=== PATIENT | male | born 1940 | race African-American/Black ===

== ENCOUNTER 2018-02-20 12:56 | Inpatient (IN) | payer MEDICARE, OTHER ==
[~2018-02-20] VITALS: Ht 177.8 cm; Wt 119.3 kg
[2018-02-20] MEDS ORDERED: OLANZAPINE 10 MG VIAL IM ONE ×2 (12:59→13:15)
[2018-02-20] MEDS ORDERED: LORAZEPAM 2 MG/1 ML VIAL ONE (13:01)
[2018-02-20] MEDS ORDERED: LORAZEPAM 2 MG/1 ML VIAL IM ONE (13:02)
--- NOTE | 2018-02-20 13:10 | NUR ---
PATIENT HERE FROM A NURSING FACILITY. HE IS AWAKE. HE IS COMBATIVE AND YELLING OUT INAPPRORIATE THINGS. HE IS IN RESTRAINTS FROM THE AMBULANCE. HE IS GOING TO ROOM 5.
[2018-02-20] MEDS ORDERED: POLY17PO4 PO (13:30)
[2018-02-20] MEDS ORDERED: NIFE30TA89 PO (13:30)
[2018-02-20] MEDS ORDERED: BISA-79 PO (13:30)
[2018-02-20] MEDS ORDERED: CHOL20004 PO (13:30)
[2018-02-20] MEDS ORDERED: ARIP400S IM (13:30)
[2018-02-20] MEDS ORDERED: DIVA500T54 PO (13:30)
[2018-02-20] MEDS ORDERED: FERR325T28 PO (13:30)
[2018-02-20] MEDS ORDERED: ACET-2154 PO (13:30)
[2018-02-20] MEDS ORDERED: ACCU-CHEK (13:30)
[2018-02-20] MEDS ORDERED: SENN-18 PO (13:30)
[2018-02-20] MEDS ORDERED: QUET50TA PO (13:30)
[2018-02-20] MEDS ORDERED: LORA-259 PO (13:30)
[2018-02-20 13:40] LABS: BASOPHILS # (AUTO) 0.1 K/uL (0.0-8.0); BASOPHILS % (AUTO) 0.9 % (0.0-2.0); EOSINOPHILS # (AUTO) 0.1 K/uL (0.0-0.7); EOSINOPHILS % (AUTO) 0.8 % (0.0-7.0); HEMATOCRIT 36.3 % (36.7-47.1); LYMPHOCYTES # (AUTO) 1.4 K/uL (20.0-40.0); LYMPHOCYTES % (AUTO) 16.5 % (20.5-51.5); MEAN CORPUSCULAR HEMOGLOBIN 28.6 uug (23.8-33.4); MEAN CORPUSCULAR HGB CONC 33 g/dL (32.5-36.3); MEAN CORPUSCULAR VOLUME 86.3 fL (73.0-96.2); MONOCYTES # (AUTO) 0.6 K/uL (2.0-10.0); MONOCYTES % (AUTO) 6.4 % (0.0-11.0); NEUTROPHILS # (AUTO) 6.6 K/uL (1.8-8.9); NEUTROPHILS % (AUTO) 75.4 % (38.5-71.5); PLATELET COUNT (AUTO) 278 K/uL (152-348); WHITE BLOOD COUNT (AUTO) 8.7 K/uL (3.6-10.2)
[2018-02-20 13:46] LABS: CARBON DIOXIDE 19 mmol/L (21-32); CHLORIDE 102 mmol/L (98-107); CREATININE 4.1 mg/dL (0.6-1.3); GLUCOSE 124 mg/dL (74-106); POTASSIUM 4.4 mmol/L (3.5-5.1); UREA NITROGEN, BLOOD 54 mg/dL (7-18)
[2018-02-20 13:51] LABS: ALANINE AMINOTRANSFERASE 20 U/L (16-63); ALKALINE PHOSPHATASE 112 U/L (50-136); ASPARTATE AMINOTRANSFERASE 9 U/L (15-37); BILIRUBIN,DIRECT 0.1 mg/dL (0.0-0.2); BILIRUBIN,TOTAL 0.3 mg/dL (0.2-1.0); TOTAL PROTEIN, SERUM 8.1 g/dL (6.4-8.2)
[2018-02-20 13:53] LABS: ACETAMINOPHEN < 2.0 ug/mL (10-30); ETHANOL < 3 MG/DL (0-0)
--- NOTE | 2018-02-20 14:10 | NUR ---
PATIENT IS CALM NOW, NO FURTHER YELLING OR SUDDEN MOVEMENTS. SP02 >99 % ON RA. HE IS SITTING UP QUIETLY WATCVHING TV. AWAITING TEST RESULTS.
--- NOTE | 2018-02-20 15:05 | NUR ---
PATIENT IS SLEEPY BUT AROUSES EASY. SP02 >99% ON RA.
[2018-02-20] MEDS ORDERED: HALOPERIDOL LACTATE 5 MG/1 ML VIAL IM ONE (15:33)
[2018-02-20] MEDS ORDERED: HALOPERIDOL LACTATE 5 MG/1 ML VIAL ONE (15:39)
[2018-02-20] MEDS ORDERED: IV NS 1000 ML 1,000 ML IV ONE (15:45)
--- NOTE | 2018-02-20 16:30 | NUR ---
PT IS RESTING COMFORTABLY WITH EYES CLOSED. O2 SAT IS 99% ON ROOM AIR.
--- NOTE | 2018-02-20 17:45 | NUR ---
IV removed. Catheter intact and site benign. Pressure and 4x4 gauze applied to site. No bleeding noted.
--- NOTE | 2018-02-20 17:56 | NUR ---
GAVE REPORT TO TYLER AND PT WAS TRANSFERRED TO [facility].
[2018-02-20] MEDS ORDERED: TEMAZEPAM 7.5 MG CAPSULE PO PRN (18:00)
[2018-02-20] MEDS ORDERED: MAG HYDROX/AL HYDROX/SIMETH 30 ML LIQUID UDC PO PRN (18:00)
[2018-02-20] MEDS ORDERED: MAGNESIUM HYDROXIDE 30 ML LIQUID UDC PO PRN (18:00)
--- NOTE | 2018-02-20 18:00 | NUR ---
Gps/Pill Packer- Received patient from ER via [facility].Patient is lethargic, difficulty following directions. Incontinent of urine noted, diaper applied. Speech slurred, when tried to awakened patient, unable to weight patient at this time, r/t lethargy, unable to follow directions. Bed alarm on. Called [facility], left message. Routine admission care done.Unable to feed patient lethargic.MRSA swab done, urine specimen obtained sent to lab.
[2018-02-20 18:34] LABS: *BILIRUBIN,URIN NEGATIVE (NEGATIVE); *BLOOD, URINE 2+ (NEGATIVE); *CLARITY,URINE CLEAR (CLEAR); *COLOR,URINE YELLOW (YELLOW); *KETONES,URINE NEGATIVE (NEGATIVE); *UROBILINOGEN,URINE 0.2 E.U./dl (NORMAL); LEUKOCYTE ESTERASE ,URINE NEGATIVE (NEGATIVE); NITRITE, URINE NEGATIVE (NEGATIVE); PH,URINE 5.5 (5.0-8.0); UGLUCOSE NEGATIVE (NEGATIVE)
[2018-02-20 18:45] LABS: *AMPHETAMINE, URINE NEGATIVE (NEGATIVE); *BARBITURATE, URINE NEGATIVE (NEGATIVE); *CANNABINOID, URINE NEGATIVE (NEGATIVE); *COCCAINE, URINE NEGATIVE (NEGATIVE); *OPIATE, URINE NEGATIVE (NEGATIVE); *PHENCYCLIDINE SCREEN,URINE NEGATIVE (NEGATIVE)
[2018-02-20 19:59] LABS: *PROTEIN,URINE 3+ (NEGATIVE)
[2018-02-20 20:04] LABS: MUCUS,URINE FEW /LPF (0-FEW)
[2018-02-20 21:55] VITALS: BP 132/86
[2018-02-20] MEDS ORDERED: BISACODYL 5 MG TABLET.DR PO PRN (23:45)
[2018-02-20] MEDS ORDERED: SENNOSIDES 1 TABLET PO PRN (23:45)
[2018-02-21 07:13] LABS: BASOPHILS % (AUTO) 0.5 % (0.0-2.0); EOSINOPHILS # (AUTO) 0.2 K/uL (0.0-0.7); HEMATOCRIT 36.1 % (36.7-47.1); HEMOGLOBIN 11.8 g/dL (12.5-16.3); LYMPHOCYTES # (AUTO) 2.2 K/uL (20.0-40.0); LYMPHOCYTES % (AUTO) 26.7 % (20.5-51.5); MEAN CORPUSCULAR HEMOGLOBIN 28.7 uug (23.8-33.4); MEAN CORPUSCULAR HGB CONC 33 g/dL (32.5-36.3); MEAN CORPUSCULAR VOLUME 88.1 fL (73.0-96.2); MONOCYTES # (AUTO) 0.6 K/uL (2.0-10.0); MONOCYTES % (AUTO) 7.1 % (0.0-11.0); NEUTROPHILS # (AUTO) 5.2 K/uL (1.8-8.9); NEUTROPHILS % (AUTO) 63.7 % (38.5-71.5); PLATELET COUNT (AUTO) 287 K/uL (152-348); RED BLOOD CELL COUNT(AUTO) 4.09 MIL/uL (4.06-5.63); WHITE BLOOD COUNT (AUTO) 8.1 K/uL (3.6-10.2)
[2018-02-21 07:30] VITALS: BP 146/89
[2018-02-21] MEDS ORDERED: TEMAZEPAM 15 MG CAPSULE PO PRN (08:00)
[2018-02-21 08:24] LABS: CARBON DIOXIDE 22 mmol/L (21-32); CHLORIDE 99 mmol/L (98-107); CREATININE 4.1 mg/dL (0.6-1.3); GLUCOSE 82 mg/dL (74-106); POTASSIUM 4.8 mmol/L (3.5-5.1); UREA NITROGEN, BLOOD 53 mg/dL (7-18)
[2018-02-21 08:25] LABS: ALANINE AMINOTRANSFERASE 21 U/L (16-63); ALKALINE PHOSPHATASE 106 U/L (50-136); ASPARTATE AMINOTRANSFERASE 22 U/L (15-37); BILIRUBIN,TOTAL 0.3 mg/dL (0.2-1.0); MAGNESIUM 2.4 mg/dL (1.8-2.4); PHOSPHOROUS 4.1 mg/dL (2.5-4.9); TOTAL PROTEIN, SERUM 8.1 g/dL (6.4-8.2)
[2018-02-21 08:30] LABS: VALPROIC ACID < 3 ug/mL (50-100)
[2018-02-21] MEDS: MIRALAX 17 GM POWD.PACK PO SCH (08:44)
[2018-02-21] MEDS: CHOLECALCIFEROL 1,000 UNIT TABLET PO SCH (08:44)
[2018-02-21] MEDS: FERROUS SULFATE 325 MG TABEC PO SCH (08:44)
[2018-02-21] MEDS: LORAZEPAM 0.5 MG TABLET PO PRN ×2 (08:44→15:19)
[2018-02-21] MEDS: NIFEdipine XL 30 MG TABSR PO SCH ×2 (08:44→16:19)
[2018-02-21 09:14] LABS: THYROID STIMULATING HORMONE 0.753 mIU/mL (0.358-3.740)
[2018-02-21] MEDS ORDERED: Medication Not On Formulary EA (Quetiapine Fumarate (Seroquel) 50 MG) PO SCH (11:15)
[2018-02-21] MEDS: QUETIAPINE FUMARATE 25 MG TABLET PO SCH ×2 (12:00→17:00)
[2018-02-21] MEDS: ACETAMINOPHEN 325 MG TABLET PO PRN ×2 (15:10→22:05)
[2018-02-21] MEDS: hydrALAZINE HCL 25 MG TABLET PO PRN (15:19)
[2018-02-21 15:46] VITALS: BP 164/84
[2018-02-21 18:11] VITALS: BP 147/86
[2018-02-21 20:00] VITALS: BP 160/75
[2018-02-21] MEDS: DIVALPROEX ER 500 MG TAB.SR.24H PO SCH (21:00)
[2018-02-21] MEDS: ATORVASTATIN 10 MG TABLET PO SCH (21:15)
--- NOTE | 2018-02-22 06:01 | NUR ---
PATIENT SLEPT INTERMITTENTLY THROUGH THE NIGHT FOR APPROX. 5HRS. WILL CONTINUE TO MONITOR FOR HIS SAFETY
[2018-02-22 07:35] LABS: IRON, SERUM 24 ug/dL (50-175)
[2018-02-22 07:44] LABS: BASOPHILS % (AUTO) 0.5 % (0.0-2.0); EOSINOPHILS # (AUTO) 0.1 K/uL (0.0-0.7); EOSINOPHILS % (AUTO) 1.5 % (0.0-7.0); HEMATOCRIT 35.1 % (36.7-47.1); HEMOGLOBIN 11.4 g/dL (12.5-16.3); LYMPHOCYTES # (AUTO) 1.6 K/uL (20.0-40.0); LYMPHOCYTES % (AUTO) 19.6 % (20.5-51.5); MEAN CORPUSCULAR HEMOGLOBIN 28.4 uug (23.8-33.4); MEAN CORPUSCULAR HGB CONC 33 g/dL (32.5-36.3); MEAN CORPUSCULAR VOLUME 87.5 fL (73.0-96.2); MONOCYTES # (AUTO) 0.7 K/uL (2.0-10.0); MONOCYTES % (AUTO) 8.7 % (0.0-11.0); NEUTROPHILS # (AUTO) 5.8 K/uL (1.8-8.9); NEUTROPHILS % (AUTO) 69.7 % (38.5-71.5); PLATELET COUNT (AUTO) 284 K/uL (152-348); RED BLOOD CELL COUNT(AUTO) 4.01 MIL/uL (4.06-5.63); WHITE BLOOD COUNT (AUTO) 8.3 K/uL (3.6-10.2)
[2018-02-22 08:33] VITALS: BP 152/83
[2018-02-22 08:55] LABS: ALANINE AMINOTRANSFERASE 20 U/L (16-63); ALKALINE PHOSPHATASE 100 U/L (50-136); ASPARTATE AMINOTRANSFERASE 16 U/L (15-37); BILIRUBIN,TOTAL 0.3 mg/dL (0.2-1.0); CARBON DIOXIDE 21 mmol/L (21-32); CHLORIDE 102 mmol/L (98-107); CREATININE 4.1 mg/dL (0.6-1.3); FERRITIN 248 ng/mL (26-388); GLUCOSE 97 mg/dL (74-106); MAGNESIUM 2.3 mg/dL (1.8-2.4); POTASSIUM 4.7 mmol/L (3.5-5.1); TOTAL PROTEIN, SERUM 7.7 g/dL (6.4-8.2); UREA NITROGEN, BLOOD 52 mg/dL (7-18)
[2018-02-22] MEDS: FERROUS SULFATE 325 MG TABEC PO SCH (08:57)
[2018-02-22] MEDS: CHOLECALCIFEROL 1,000 UNIT TABLET PO SCH (08:57)
[2018-02-22] MEDS: hydrALAZINE HCL 25 MG TABLET PO PRN (08:57)
[2018-02-22] MEDS: QUETIAPINE FUMARATE 25 MG TABLET PO SCH ×2 (08:58→16:48)
[2018-02-22] MEDS: NIFEdipine XL 30 MG TABSR PO SCH (08:58)
[2018-02-22] MEDS: MIRALAX 17 GM POWD.PACK PO SCH (08:59)
[2018-02-22 10:02] VITALS: BP 146/80
[2018-02-22 11:12] LABS: CREATINE KINASE, TOTAL 441 U/L (39-308)
[2018-02-22] MEDS: ACETAMINOPHEN 325 MG TABLET PO PRN (11:14)
[2018-02-22] MEDS ORDERED: METOPROLOL TARTRATE 25 MG TABLET PO SCH (14:45)
[2018-02-22 16:51] VITALS: BP 107/57
[2018-02-22 20:00] VITALS: BP 133/73
[2018-02-22] MEDS: DIVALPROEX ER 500 MG TAB.SR.24H PO SCH (21:00)
[2018-02-22] MEDS: ATORVASTATIN 10 MG TABLET PO SCH (21:00)
--- NOTE | 2018-02-22 21:00 | NUR ---
RECEIVED PATIENT IN THE DAY ROOM. HE IS NOTED A/O X 2. HE IS ABLE TO AMBULATE WITH THE AID OF A FWW. PATIENT IS NOTED EASILY IRRITABLE, DISORGANIZED. HE IS RESPONDING TO INTERNAL STIMULI. HAVING AH AND POSSIBLE V/A. PATIENT REFUSED ALL HIS QHS MEDICATION. MULTIPLE REDIRECTION GIVEN, HOWEVER, INEFFECTIVE. PATIENT STATED, "I ONLY TAKE MEDICATION TWICE A DAY, GET THE FUCK OUT OF MY ROOM." MULTIPLE REDIRECTION GIVEN. PT IS ALSO NOTED WITHDRAWN, LABILE MOOD. SAFETY WAS EMPHASIS. WILL CONTINUE TO MONITOR.
--- NOTE | 2018-02-23 06:49 | NUR ---
PATIENT SLEPT FOR APPROX 1.30HRS THROUGH THE NIGHT. HE REFUSED TO GIVE URINE SAMPLE AND IS REFUSING TO GIVE STOOL SAMPLE. PT CONTINUE WITH LABILE BX. RESPONDING TO EXTERNAL STIMULI. PRESSURE SPEECH, LOUD AT TIME. WILL CONTINUE TO MONITOR.
[2018-02-23 07:30] VITALS: BP 142/82
[2018-02-23] MEDS: NIFEdipine XL 90 MG TABSR PO SCH (09:00)
[2018-02-23] MEDS: QUETIAPINE FUMARATE 25 MG TABLET PO SCH (09:00)
[2018-02-23] MEDS: FERROUS SULFATE 325 MG TABEC PO SCH (09:48)
[2018-02-23] MEDS: CHOLECALCIFEROL 1,000 UNIT TABLET PO SCH (09:49)
[2018-02-23] MEDS: MIRALAX 17 GM POWD.PACK PO SCH (09:49)
[2018-02-23] MEDS: ACETAMINOPHEN 325 MG TABLET PO PRN (09:49)
--- NOTE | 2018-02-23 14:26 | NUR ---
Initial Discharge Instructions: Patient currently resides at [facility] [[address] [place] [address]; [phone]]. Pt states that he would not like to return there. DANETTE will speak with pt's LPS Conservator, Rock Luis ([phone]). DANETTE will collaborate with pt, Conservator, and MD regarding appropriate discharge plans for this patient. SW will form a safe and proper discharge plan.
[2018-02-23 14:52] LABS: *BILIRUBIN,URIN NEGATIVE (NEGATIVE); *BLOOD, URINE 2+ (NEGATIVE); *CLARITY,URINE CLEAR (CLEAR); *COLOR,URINE YELLOW (YELLOW); *KETONES,URINE NEGATIVE (NEGATIVE); *UROBILINOGEN,URINE 0.2 E.U./dl (NORMAL); LEUKOCYTE ESTERASE ,URINE NEGATIVE (NEGATIVE); NITRITE, URINE NEGATIVE (NEGATIVE); PH,URINE 5.5 (5.0-8.0); UGLUCOSE TRACE (NEGATIVE)
[2018-02-23 14:57] LABS: *PROTEIN,URINE 3+ (NEGATIVE)
[2018-02-23 15:00] LABS: BACTERIA,URINE FEW /HPF (NONE SEEN); SQUAMOUS EPITHELIAL CELL,UR FEW /HPF (NONE SEEN)
[2018-02-23 15:11] LABS: *CREATININE,URINE 54.1 mg/dL (30-125); *URINE TOTAL PROTEIN RANDOM 343.7 mg/dL (<150/24HR)
[2018-02-23 15:41] LABS: *BILIRUBIN,URIN NEGATIVE (NEGATIVE); *BLOOD, URINE 1+ (NEGATIVE); *CLARITY,URINE CLEAR (CLEAR); *COLOR,URINE YELLOW (YELLOW); *KETONES,URINE NEGATIVE (NEGATIVE); *UROBILINOGEN,URINE 0.2 E.U./dl (NORMAL); LEUKOCYTE ESTERASE ,URINE NEGATIVE (NEGATIVE); NITRITE, URINE NEGATIVE (NEGATIVE); PH,URINE 5.5 (5.0-8.0); UGLUCOSE TRACE (NEGATIVE)
[2018-02-23 15:48] LABS: *PROTEIN,URINE 3+ (NEGATIVE)
[2018-02-23 15:52] LABS: BACTERIA,URINE FEW /HPF (NONE SEEN); SQUAMOUS EPITHELIAL CELL,UR FEW /HPF (NONE SEEN)
--- NOTE | 2018-02-23 15:54 | NUR ---
Firearms Report: Maintenance And Repair Worker completed and submitted [employer] Firearms Report on 02/23/18
[2018-02-23 15:56] VITALS: BP 148/72
[2018-02-23] MEDS: OLANZAPINE 2.5 MG TABLET PO SCH (17:20)
[2018-02-23 20:49] VITALS: BP 188/80
[2018-02-23] MEDS: DIVALPROEX ER 500 MG TAB.SR.24H PO SCH (21:00)
[2018-02-23] MEDS: ATORVASTATIN 10 MG TABLET PO SCH (21:00)
[2018-02-23] MEDS: hydrALAZINE HCL 25 MG TABLET PO PRN (21:07)
[2018-02-23] MEDS: LORAZEPAM 0.5 MG TABLET PO PRN (21:07)
[2018-02-23] MEDS ORDERED: CLONIDINE-TTS 1 PATCH TD SCH (22:00)
--- NOTE | 2018-02-24 04:50 | NUR ---
NURSING NOTE:A/O X2,ANXIOUS,RESTLESS,SUSPICIOUS AND EASILY IRRITABLE/ANGRY UPON APPROACH.REFUSED TO TAKE HS MEDS,BACAME MORE ANGRY WHEN STAFF WAS ATTEMPTING TO OFFER HIM SEVERAL TIMES.HE STARTEDYELLING,SCREAMING, CURSING AND THREATENING WHEN STAFFS WERE COME CLOSER TO TALK /EXPLAIN TO HIM.HIS BP WAS HIGH 188/80 II=608-SC MED WAS OFFERRED BUT PT STILL REFUSED TO TAKE IT. WAS NOTIFIED WITH NEW ORDER FOR CLONIDINE GTT1 PATCH TO APPLY Q 7 DAYS.2 SECURITY GUARDS WERE PRESENTED @ THE TIME OF LALITA PATCH TO HIS MID BACK DUE TO RESISTIVE WITH CARE.PT SLEPT ON & OFF,RESPONDING TO INTERNAL STIMULI,"I'M TALKING TO PROFILE SAW SETUP OPERATOR NOT YOU STUPID WHORE SUCKER!".CALM DOWN WHEN LEFT ALONE BUT STILL MUMBLING TO HIMSELF.POOR INSIGHT AND IMPAIRED JUDEMENT.WILL CONTINUE TO MONITOR.
[2018-02-24 07:30] VITALS: BP 167/99
[2018-02-24] MEDS: FERROUS SULFATE 325 MG TABEC PO SCH (09:01)
[2018-02-24] MEDS: OLANZAPINE 2.5 MG TABLET PO SCH (09:01)
[2018-02-24] MEDS: CHOLECALCIFEROL 1,000 UNIT TABLET PO SCH (09:02)
[2018-02-24] MEDS: NIFEdipine XL 90 MG TABSR PO SCH (09:02)
[2018-02-24] MEDS: MIRALAX 17 GM POWD.PACK PO SCH (09:02)
[2018-02-24 10:08] LABS: A/G RATIO 0.8 (0.7-1.7); ALBUMIN 3.2 g/dL (2.9-4.4); ALPHA-1-GLOBULIN 0.3 g/dL (0.0-0.4); ALPHA-2-GLOBULIN 0.9 g/dL (0.4-1.0); BETA GLOBULIN 1.4 g/dL (0.7-1.3); GAMMA GLOBULIN 1.3 g/dL (0.4-1.8); GLOBULIN, TOTAL 3.9 g/dL (2.2-3.9); M-SPIKE Not Observed g/dL (Not Observed)
[2018-02-24] MEDS ORDERED: LOPERAMIDE HCL 1 MG/5 ML UDC PO PRN (13:00)
[2018-02-24 15:39] VITALS: BP 119/74
--- NOTE | 2018-02-24 16:18 | NUR ---
Discharge Planning Note: DANETTE spoke with patient's psychiatrist Dr. Templeton who stated he would like to discharge patient tomorrow. SW attempted to call patient's facility [facility] to alert them of patient's discharge. SW left a voicemail for admissions [ ] and will continue to follow up.
[2018-02-24] MEDS: OLANZAPINE 5 MG TABLET PO SCH (16:56)
[2018-02-24] MEDS ORDERED: OLANZAPINE 2.5 MG TABLET PO SCH (17:00)
[2018-02-24 19:53] VITALS: BP 133/70
[2018-02-24] MEDS: ATORVASTATIN 10 MG TABLET PO SCH (21:00)
[2018-02-24] MEDS: DIVALPROEX ER 500 MG TAB.SR.24H PO SCH (21:00)
--- NOTE | 2018-02-24 21:30 | NUR ---
RECEIVED PATIENT IN THE DAY ROOM. HE IS NOTED A/O X 2, HE IS ABLE TO AMBULATE WITH THE AID OF A FWW AND ABLE TO MAKE HIS NEEDS KNOWN. HE IS NOTED EXTREMELY IRRITABLE, RESISTANT TO CARE. UNABLE TO BE REDIRECTED, VERBALLY ABUSIVE, LABILE MOOD, BLUNTED AFFECT. HE REFUSED QHS MEDICATION. V/S STABLE AT THIS TIME. SAFETY WAS EMPHASIS.
--- NOTE | 2018-02-24 21:45 | NUR ---
PATIENT REFUSED PODIATRY CONSULTATION. MULTIPLE REDIRECTION GIVEN; HOWEVER. INEFFECTIVE.
--- NOTE | 2018-02-24 22:00 | NUR ---
PATIENT CONTINUE IRRITABLE, LABILE BX. EASILY AGITATIVE, LOUD VOICE. HE IS NOTED TALKING TO HIMSELF AND RESPONDING TO INTERNAL STIMULI. HE ASKED FOR PAIN MEDICATION; WHEN ASKED ABOUT THE NATURE AND INTENSITY OF HIS PAIN, HE BECAME BELLIGERENT AND HE STATED, "WHAT KIND OF QUESTION IS THAT!!!... YOU ARE A NURSE, YOU FIND OUT!!! LOOK AT MY FILE. WHAT QUESTION OS THAT". THEN PATIENT WAS OFFERED TYLENOL; HOWEVER, HE REFUSED, HE STATED. "I DON'T HAVE PAIN, YOU TAKE IT AND GET OUT OF MY ROOM!!!" WILL CONTINUE TO MONITOR CLOSELY.
[2018-02-25 07:30] VITALS: BP 131/81
[2018-02-25] MEDS: NIFEdipine XL 90 MG TABSR PO SCH ×2 (09:00→09:14)
[2018-02-25] MEDS: CHOLECALCIFEROL 1,000 UNIT TABLET PO SCH ×2 (09:00→09:15)
[2018-02-25] MEDS: FERROUS SULFATE 325 MG TABEC PO SCH ×2 (09:00→09:14)
[2018-02-25] MEDS: MIRALAX 17 GM POWD.PACK PO SCH ×2 (09:00→09:15)
[2018-02-25] MEDS: OLANZAPINE 5 MG TABLET PO SCH ×2 (09:15→17:00)
[2018-02-25] MEDS: OLANZAPINE 10 MG VIAL IM PRN ×2 (09:22→17:40)
[2018-02-25 14:48] VITALS: BP 141/74
--- NOTE | 2018-02-25 17:49 | NUR ---
PATIENT REMAINS VERY AGITATED AND LOUD YELLING HAD TO GIVE 2 zyprexa im s for agitation with assist of security. PATIENT VERY COMBATIVE TOWARDS STAFF AND PEERS CURSING AT TOP OF VOICE CONTINUE TO MONITOR FOR SAFETY
[2018-02-25 20:00] VITALS: BP 137/72
[2018-02-25] MEDS: ATORVASTATIN 10 MG TABLET PO SCH (21:00)
[2018-02-25] MEDS: DIVALPROEX ER 500 MG TAB.SR.24H PO SCH (21:00)
--- NOTE | 2018-02-25 21:00 | NUR ---
RECEIVED PATIENT IN THE HALLWAY. HE IS NOTED A/O X 2. HE IS ABLE TO AMBULATE WITH STEADY GAIT WITH THE AID OF FWW. HE CONTINUE REFUSING DEPAKOTE AND LIPITOR QHS. HE IS NOTED EASILY IRRITABLE, LABILE, BELLIGERENT AND LOUD. CONTINUE TALKING TO HIMSELF. SUSPICIOUS, AND WITHDRAWN. HE REMAINS UNABLE TO VERBALIZED FEELINGS. POOR INSIGHT AND JUDGMENT. SAFETY EMPHASIS, CONTINUE TO MONITOR PT CLOSELY.
--- NOTE | 2018-02-26 03:07 | NUR ---
PATIENT NOTED AWAKE, SITTING IN HIS BED, LIGHTS ON. HE IS NOTED TALKING TO HIMSELF AND RESPONDING TO EXTERNAL STIMULI.
--- NOTE | 2018-02-26 06:52 | NUR ---
PATIENT SLEPT FOR APPROX 2.30 HRS THROUGH THE NIGHT. HE HAD A SHOWER, HE CONTINUE TALKING TO HIMSELF, WORD SALAD, AND EASILY IRRITABLE. HOWEVER, PATIENT ALLOWED A BLOOD DRAWN THIS AM. IT WAS ALSO NOTED DURING HIS SHOWER AN ABRASION OF APPROX 0.5CM X 0.5CM IN DIAMETER. NO SWELLING OR DISCHARGED NOTED AT THIS TIME. WOUND WAS CLEANED WITH N/S PAT DRY AND A BANDAGE WAS PLACED. PHOTO WAS TAKEN AND PLACED IN CHART, WE WILL ENDORSED TO INCOMING SHIFT TO HAVE MD EXAM WOUND. WILL CONTINUE TO MONITOR CLOSELY.
[2018-02-26 07:38] LABS: BASOPHILS % (AUTO) 0.8 % (0.0-2.0); EOSINOPHILS # (AUTO) 0.2 K/uL (0.0-0.7); EOSINOPHILS % (AUTO) 2.5 % (0.0-7.0); HEMATOCRIT 34.2 % (36.7-47.1); HEMOGLOBIN 11.3 g/dL (12.5-16.3); LYMPHOCYTES # (AUTO) 1.9 K/uL (20.0-40.0); LYMPHOCYTES % (AUTO) 31.8 % (20.5-51.5); MEAN CORPUSCULAR HEMOGLOBIN 28.9 uug (23.8-33.4); MEAN CORPUSCULAR HGB CONC 33 g/dL (32.5-36.3); MEAN CORPUSCULAR VOLUME 87.4 fL (73.0-96.2); MONOCYTES # (AUTO) 0.5 K/uL (2.0-10.0); MONOCYTES % (AUTO) 7.9 % (0.0-11.0); NEUTROPHILS # (AUTO) 3.5 K/uL (1.8-8.9); PLATELET COUNT (AUTO) 359 K/uL (152-348); RED BLOOD CELL COUNT(AUTO) 3.91 MIL/uL (4.06-5.63); WHITE BLOOD COUNT (AUTO) 6.1 K/uL (3.6-10.2)
[2018-02-26 07:55] LABS: ALANINE AMINOTRANSFERASE 20 U/L (16-63); ALKALINE PHOSPHATASE 95 U/L (50-136); ASPARTATE AMINOTRANSFERASE 11 U/L (15-37); BILIRUBIN,TOTAL 0.3 mg/dL (0.2-1.0); CARBON DIOXIDE 21 mmol/L (21-32); CHLORIDE 101 mmol/L (98-107); CREATININE 4.2 mg/dL (0.6-1.3); GLUCOSE 101 mg/dL (74-106); MAGNESIUM 2.6 mg/dL (1.8-2.4); PHOSPHOROUS 4.7 mg/dL (2.5-4.9); POTASSIUM 5.1 mmol/L (3.5-5.1); TOTAL PROTEIN, SERUM 8.1 g/dL (6.4-8.2); UREA NITROGEN, BLOOD 71 mg/dL (7-18)
[2018-02-26] MEDS: FERROUS SULFATE 325 MG TABEC PO SCH (08:56)
[2018-02-26] MEDS: NIFEdipine XL 90 MG TABSR PO SCH (08:56)
[2018-02-26] MEDS: MIRALAX 17 GM POWD.PACK PO SCH (08:56)
[2018-02-26] MEDS: CHOLECALCIFEROL 1,000 UNIT TABLET PO SCH (08:56)
[2018-02-26] MEDS: OLANZAPINE 5 MG TABLET PO SCH (08:57)
[2018-02-26] MEDS: OLANZAPINE 10 MG VIAL IM PRN (09:02)
--- NOTE | 2018-02-26 10:58 | NUR ---
DC Note: Patient will be discharged back to [facility] [[address], [place] [address]; [place] [address]; [phone]] via ambulance. Spoke with Ailyn and Marbella at the facility who state they are ready to accept the patient today. Patient will be staying in Room 25. Spoke with pt's LPS conservator, Rock Luis ([phone]) who is aware and agreeable with discharge plan. Patient is aware and agreeable with discharge plans. Patient will follow-up at the facility with Dr. Zee (Scientific Programmer) and Dr. Julien (Psychiatrist).
--- NOTE | 2018-02-26 13:26 | NUR ---
NOTED PT TALKS TO SELF, AND ANXIOUS. OFFERED ATIVAN, PT STRONGLY REFUSED AND STATED "GET AWAY". WILL MONITOR.
--- NOTE | 2018-02-26 15:13 | NUR ---
1350: DISCHARGED PT VIA AMBULANCE TO [facility]. DISCHARGE INSTRUCTIONS AND BELONGINGS SENT WITH THE PATIENT. NOT IN ACUTE DISTRESS.
== END 2018-02-26 15:33 | DRG 885 ==
LOC: ER 12:57 → GPS 17:57
PROVIDERS: ADMIT Psychiatry & Neurology Psychiatry; ATTEND Internal Medicine
PROC: 0HBRXZZ Excision of Toe Nail, External Approach (ICD-10-PCS; principal; 2018-02-24)
DX: F20.0 Paranoid schizophrenia (principal); N18.9 Chronic kidney disease, unspecified; E11.65 Type 2 diabetes mellitus with hyperglycemia; E44.0 Moderate protein-calorie malnutrition; E11.22 Type 2 diabetes mellitus with diabetic chronic kidney disease; E11.51 Type 2 diabetes mellitus with diabetic peripheral angiopathy without gangrene; N25.81 Secondary hyperparathyroidism of renal origin; B35.1 Tinea unguium; B35.3 Tinea pedis; D63.1 Anemia in chronic kidney disease; E66.9 Obesity, unspecified; R26.2 Difficulty in walking, not elsewhere classified; F31.9 Bipolar disorder, unspecified; E78.5 Hyperlipidemia, unspecified; F41.9 Anxiety disorder, unspecified; H54.40 Blindness, one eye, unspecified eye; Z68.37 Body mass index [BMI] 37.0-37.9, adult; Z79.899 Other long term (current) drug therapy; I12.9 Hypertensive chronic kidney disease with stage 1 through stage 4 chronic kidney disease, or unspecified chronic kidney disease
CPT/HCPCS: 36415; 71045; 80164; 80307; 82306; 83550; 83735; 83970; 84100; 84155; 84156; 84165; 84300; 84443; 85025; 87086; A4663; G0480; G0480-TC; J1630; J2060; J2358; J7030

== ENCOUNTER 2019-09-29 17:03 | Inpatient (IN) | payer MEDICARE, OTHER ==
[~2019-09-29] VITALS: Ht 190.5 cm; Wt 104.8 kg
[~2019-09-29 17:03] MED LIST: ACCU-CHEK; ACET-2154 PO; ARIP400S IM; BISA-79 PO; CHOL20004 PO; DIVA500T54 PO; FERR325T28 PO; LORA-259 PO; NIFE30TA89 PO; POLY17PO4 PO; QUET50TA PO; SENN-18 PO
--- NOTE | 2019-09-29 17:32 | NUR ---
PER CASE MANGER REPORT, PT REFUSED DIALYSIS/HD DEVICE.
[2019-09-29] MEDS ORDERED: LACT10SO PO (17:52)
[2019-09-29] MEDS ORDERED: SEVE800T8 PO (17:52)
[2019-09-29] MEDS ORDERED: CITR30SO2 PO (17:52)
[2019-09-29] MEDS ORDERED: FURO-151 PO (17:52)
[2019-09-29] MEDS ORDERED: [UNRECOGNIZED DRUG - CODE] PO (17:52)
[2019-09-29] MEDS ORDERED: QUET100T PO (17:52)
[2019-09-29] MEDS ORDERED: FAMO-132 PO (17:52)
[2019-09-29] MEDS ORDERED: BISA10SU61 RC (17:52)
[2019-09-29] MEDS ORDERED: PATI16.8 PO (17:52)
--- NOTE | 2019-09-29 18:19 | NUR ---
PT IS IN ROOM #1A. DR CARMONA EVALUATED THE PT.
[2019-09-29 18:27] LABS: BASOPHILS % (AUTO) 0.2 % (0.0-2.0); EOSINOPHILS # (AUTO) 0.2 K/uL (0.0-0.7); EOSINOPHILS % (AUTO) 1.5 % (0.0-7.0); LYMPHOCYTES # (AUTO) 0.9 K/uL (20.0-40.0); LYMPHOCYTES % (AUTO) 7.5 % (20.5-51.5); MEAN CORPUSCULAR HEMOGLOBIN 26.7 uug (23.8-33.4); MEAN CORPUSCULAR HGB CONC 33 g/dL (32.5-36.3); MEAN CORPUSCULAR VOLUME 80.7 fL (73.0-96.2); MONOCYTES # (AUTO) 0.8 K/uL (2.0-10.0); MONOCYTES % (AUTO) 6.7 % (0.0-11.0); NEUTROPHILS # (AUTO) 10.7 K/uL (1.8-8.9); NEUTROPHILS % (AUTO) 84.1 % (38.5-71.5); PLATELET COUNT (AUTO) 294 K/uL (152-348); WHITE BLOOD COUNT (AUTO) 12.7 K/uL (3.6-10.2)
[2019-09-29 18:34] LABS: RED BLOOD CELL COUNT(AUTO) 2.44 MIL/uL (4.06-5.63)
[2019-09-29 18:35] LABS: HEMATOCRIT 19.7 % (36.7-47.1); HEMOGLOBIN 6.5 g/dL (12.5-16.3)
[2019-09-29 18:37] LABS: CARBON DIOXIDE 23 mmol/L (21-32); CHLORIDE 95 mmol/L (98-107); GLUCOSE 80 mg/dL (74-106); POTASSIUM 4.9 mmol/L (3.5-5.1)
--- NOTE | 2019-09-29 18:37 | NUR ---
PT REFUSED CT OF THE HEAD AND CHEST X-RAYS. DR CARMONA NOTIFIED.
[2019-09-29 18:40] LABS: CREATININE 8.8 mg/dL (0.6-1.3); UREA NITROGEN, BLOOD 96 mg/dL (7-18)
[2019-09-29 18:50] LABS: ETHANOL < 3 MG/DL (0-0)
[2019-09-29 18:54] LABS: ACETAMINOPHEN < 2.0 ug/mL (10-30); ALANINE AMINOTRANSFERASE 6 U/L (16-63); ALKALINE PHOSPHATASE 116 U/L (50-136); ASPARTATE AMINOTRANSFERASE 6 U/L (15-37); BILIRUBIN,DIRECT 0.1 mg/dL (0.0-0.2); BILIRUBIN,TOTAL 0.2 mg/dL (0.2-1.0); TOTAL PROTEIN, SERUM 8.1 g/dL (6.4-8.2)
[2019-09-29 18:59] LABS: BAND % (MANUAL) 7 % (0-10); EOSINOPHILS % (MANUAL) 1 % (0-8); LYMPHOCYTES % (MANUAL) 9 % (20-40); MONOCYTES % (MANUAL) 6 % (2-10); NEUTROPHILS % (MANUAL) 77 % (42-75)
[2019-09-29 19:04] LABS: THYROID STIMULATING HORMONE 1.039 mIU/mL (0.358-3.740)
--- NOTE | 2019-09-29 19:07 | NUR ---
RECEIVED HAND OFF AND SBAR FROM OUTGOING DAY SHIFT RN PT IS ON SEMI ESQUEDA'S G18 TO R WRIST BP: 126/70MMHG HR 84 BPM ERMD ALREADY SPOKEN W/ FABIANO MATOS TO BE ADMITTED FOR TELE DX WEAKNESS/ LOW HGB REFUSES PHLEBOTOMY BLOOD TYPING AND BLOOD TRANSFUSION AND TYPING AT THIS TIME KEPT WARM DRY AND COMFORTABLE BELONGINGS LIST SIGNED AND ACCOUNTED FOR
--- NOTE | 2019-09-29 19:07 | NUR ---
PT REFUSED BLOOD TRANSFUSION, AND TYPE AND SCREEN TEST. DR BECK NOTIFIED. REPORT GIVEN TO [facility] NURSING DIRECTORGLUE MIXER.
--- NOTE | 2019-09-29 19:07 | NUR ---
CALL FOR BED DONE. UNABLE TO ACQUIRE AT THIS TIME FROM [facility]. PENDING AVAILABLE BED
--- NOTE | 2019-09-29 19:48 | NUR ---
HAND OFF AND SBAR GIVEN TO LEÓN RN Pt. admitted to TELE RM 303 , under care of Dr. MARIO Belongs List completed
--- NOTE | 2019-09-29 19:55 | NUR ---
NEW ADMIT NOTES PATIENT RECEIVED INTO CARE FROM ER. PATIENT IS ALERT/ORIENTED X2 AND HAS NO COMPLAINTS OF PAIN OR DISCOMFORT AT THIS TIME. PATIENT IS ABLE TO ANSWER QUESTIONS BUT MOST HISTORY IS RECEIVED FROM CAREGIVER, BARBARA, WHO CAME WITH PATIENT TO THE FLOOR. PATIENT SKIN IS CLEAN, DRY, AND INTACT. IV CATH IN RIGHT WRIST IS PATENT AND INTACT. ALL SAFETY AND FALL PRECAUTION MEASURES ARE IN PLACE. CALL LIGHT AND PERSONAL ITEMS ARE WITHIN REACH AT ALL TIMES.
[2019-09-29 20:30] VITALS: BP 129/65
[2019-09-29] MEDS ORDERED: IV NS 1000 ML 1,000 ML IV PRN (21:15)
[2019-09-29] MEDS ORDERED: ONDANSETRON 4 MG/2 ML VIAL IV PRN (21:15)
[2019-09-29] MEDS ORDERED: HYDROCODONE/APAP 5-325MG TABLET PO PRN (21:15)
[2019-09-29] MEDS ORDERED: Z GUARD REMEDY PASTE 57 GM TUBE TOP PRN (21:15)
--- NOTE | 2019-09-29 21:30 | NUR ---
NURSE TRIED REACHING CONSERVATOR OF RECORD, CHUCK ALBA VIA [phone], INRE PATIENT'S ADMITTANCE TO HOSPITAL AND NEEDED TREATMENTS WHILE IN OUR CARE. NURSE RECEIVED MESSAGE THAT CONSERVATOR'S VOICEMAIL BOX HAS NOT BEEN SETUP SO UNABLE TO LEAVE MESSAGE. WILL HAVE AM NURSE FOLLOW UP IN THE MORNING.
--- NOTE | 2019-09-29 23:15 | NUR ---
NURSE ADVISED PATIENT OF MD ORDER FOR IV FLUIDS. PATIENT REFUSED STATING THAT HE DOESN'T WANT AND THAT ALL HE NEEDS IS WATER IN THE PITCHER TO DRINK. NURSE EXPLAINED RISKS BENEFITS THREE TIMES, BUT PATIENT STILL REFUSED.
--- NOTE | 2019-09-29 23:50 | NUR ---
instrumentation tech advised nurse patient off of telemonitor. Nurse checked with patient, who had removed telemonitor completely. Nurse explained the need to continue telemonitoring. Patient refused.
[2019-09-30 00:09] VITALS: BP 134/67
[2019-09-30 04:00] VITALS: BP 145/81
--- NOTE | 2019-09-30 04:54 | NUR ---
Patient pulled out IV cath from right wrist. IV cath is intact. Nurse asked if she could insert new IV cath and patient declined.
--- NOTE | 2019-09-30 06:14 | NUR ---
Patient slept intermittently throughout night for approximately 3 hours. Patient's complaint of pain was addressed with prescribed analgesic medication. Patient was combative and agitated for most of night and could be heard talking/yelling/cursing to himself during periods of wakefulness. Patient refused to wear diaper to address his toileting needs. Patient removed right wrist 18g IV catheter and refused to have new IV catheter reinserted. Patient removed telemonitoring box and refused to have it reapplied. All nursing needs were met promptly. All safety measures and fall precaution measures remain in place. Call light and personal items remain within reach at all times.
--- NOTE | 2019-09-30 08:28 | NUR ---
RECEIVED PT RESTING COMFORTABLY IN BED. NO SIGNS OF ACUTE DISTRESS OR SOB NOTED. BED LOCKED AND IN LOW POSITION. PT ON TELEMETRY UNIT. PER NOC RN: PT REFUSES TELE MONITORING BOX. PT HAS NO IV HE PULLED OUT IV. PT REFUSES REINSERTION OF IV. WILL CONTINUE TO MONITOR.
[2019-09-30 08:48] LABS: *BILIRUBIN,URIN NEGATIVE (NEGATIVE); *BLOOD, URINE 1+ (NEGATIVE); *CLARITY,URINE SLIGHTLY CLOUDY (CLEAR); *COLOR,URINE YELLOW (YELLOW); *KETONES,URINE NEGATIVE (NEGATIVE); *UROBILINOGEN,URINE 0.2 E.U./dl (NORMAL); LEUKOCYTE ESTERASE ,URINE NEGATIVE (NEGATIVE); NITRITE, URINE NEGATIVE (NEGATIVE); PH,URINE 7.5 (5.0-8.0); UGLUCOSE TRACE (NEGATIVE)
--- NOTE | 2019-09-30 10:05 | NUR ---
CONSERVATOR CHUCK ALBA CONTACTED. IN ORDER TO CLARIFY DNR STATUS. CONSERVATOR STATED THERE IS NO POLST AT THIS TIME. CONSERVATOR STATED THAT PATIENT WENT TO COURT UNDER MENTAL HEALTH AND WAS EVALUATED BY A PSYCHIATRIST WHO FOUND PATIENT NOT CAPABLE TO MAKE SUCH DECISION. CONSERVATOR STATED THAT AT THIS TIME SHE NEEDS A SPECIAL ORDER FROM THE DEPARTMENT OF SOCIOLOGY CHAIR IN ORDER TO OBTAIN POLST. CONSERVATOR STATED THAT PATIENT AND CONSERVATOR HAVE A COURT DATE ON 10/19/2019, IN ORDER TO UPDATE (RENEW) CONSERVATORSHIP AND OBTAIN POLST ORDER. CONSERVATOR ALSO MENTIONED THAT SHE WAS SENDING A CAREGIVER TO [facility] FOR PATIENT BY THE NAME OF BARBARA. DR DENILSON MARIO INFORMED AND AWARE OF UPDATES.
[2019-09-30 10:16] LABS: BACTERIA,URINE FEW /HPF (NONE SEEN); RBC,URINE 0-3 /HPF (0-3); SQUAMOUS EPITHELIAL CELL,UR FEW /HPF (NONE SEEN); WBC,URINE 0-3 /HPF (0-3)
[2019-09-30 10:21] LABS: *AMPHETAMINE, URINE NEGATIVE (NEGATIVE); *BARBITURATE, URINE NEGATIVE (NEGATIVE); *CANNABINOID, URINE NEGATIVE (NEGATIVE); *COCCAINE, URINE NEGATIVE (NEGATIVE); *OPIATE, URINE NEGATIVE (NEGATIVE); *PHENCYCLIDINE SCREEN,URINE NEGATIVE (NEGATIVE)
[2019-09-30 11:16] VITALS: BP 130/67
[2019-09-30] MEDS: ACETAMINOPHEN 325 MG TABLET PO PRN (11:41)
--- NOTE | 2019-09-30 12:50 | NUR ---
PT RESTING COMFORTABLY IN BED. NO SIGNS OF SOB OR ACUTE DISTRESS NOTED. PT MEDICATION COMPLIANT. WILL CONTINUE TO MONITOR.
[2019-09-30] MEDS: SEVELAMER CARBONATE 800 MG TABLET PO SCH ×2 (12:55→17:00)
[2019-09-30] MEDS ORDERED: EPOETIN ALFA 20,000 UNIT/ML ML SQ ONE (13:45)
[2019-09-30 14:59] VITALS: BP 149/77
[2019-09-30] MEDS: CITRIC ACID/SODIUM CITRATE 30 ML SOLUTION PO SCH (16:40)
[2019-09-30] MEDS: SENNOSIDES 1 TABLET PO SCH (16:45)
[2019-09-30] MEDS: NIFEdipine XL 30 MG TABSR PO SCH (16:45)
--- NOTE | 2019-09-30 18:00 | NUR ---
PT RESTING COMFORTABLY IN BED. SITTER AT BEDSIDE. NO ACUTE DISTRESS OR SOB NOTED. PT MEDICATION AND DIET COMPLIANT. BED LOCKED AND IN LOW POSITION. PT ON TELEMETRY MONITORING, HOWEVER PT REFUSES TO WEAR MONITOR. WILL GIVE REPORT ACCORDINGLY.
[2019-09-30 19:56] LABS: BASOPHILS # (AUTO) 0.1 K/uL (0.0-8.0); BASOPHILS % (AUTO) 0.8 % (0.0-2.0); EOSINOPHILS # (AUTO) 0.3 K/uL (0.0-0.7); EOSINOPHILS % (AUTO) 2.6 % (0.0-7.0); LYMPHOCYTES % (AUTO) 8.4 % (20.5-51.5); MEAN CORPUSCULAR HEMOGLOBIN 26.4 uug (23.8-33.4); MEAN CORPUSCULAR HGB CONC 33 g/dL (32.5-36.3); MONOCYTES # (AUTO) 0.6 K/uL (2.0-10.0); MONOCYTES % (AUTO) 5.3 % (0.0-11.0); NEUTROPHILS # (AUTO) 10.2 K/uL (1.8-8.9); NEUTROPHILS % (AUTO) 82.9 % (38.5-71.5); PLATELET COUNT (AUTO) 348 K/uL (152-348); RED BLOOD CELL COUNT(AUTO) 2.56 MIL/uL (4.06-5.63); WHITE BLOOD COUNT (AUTO) 12.4 K/uL (3.6-10.2)
[2019-09-30 20:00] VITALS: BP 166/79
--- NOTE | 2019-09-30 20:00 | NUR ---
Received patient in bed awake, A&Ox2. No SOB noted. Caregiver at bedside. Patient agreed to be on Tele monitor but refusing IV insertion and IVF, explained risks and benefits but still refused. Safety measures observed. Call light within reach
[2019-09-30 20:05] LABS: CARBON DIOXIDE 22 mmol/L (21-32); CHLORIDE 94 mmol/L (98-107); GLUCOSE 98 mg/dL (74-106); MAGNESIUM 2.8 mg/dL (1.8-2.4); PHOSPHOROUS 3.7 mg/dL (2.5-4.9)
[2019-09-30 20:06] LABS: CHOLESTEROL 83 mg/dL (<200); HDL CHOLESTEROL 44 mg/dL (40-60); TRIGLYCERIDES 40 MG/DL (30-150)
[2019-09-30 20:08] LABS: UREA NITROGEN, BLOOD 99 mg/dL (7-18)
[2019-09-30 20:10] LABS: HEMATOCRIT 20.7 % (36.7-47.1)
[2019-09-30 20:11] LABS: HEMOGLOBIN 6.8 g/dL (12.5-16.3)
[2019-09-30 20:29] LABS: BAND % (MANUAL) 1 % (0-10); EOSINOPHILS % (MANUAL) 1 % (0-8); LYMPHOCYTES % (MANUAL) 8 % (20-40); MONOCYTES % (MANUAL) 4 % (2-10); NEUTROPHILS % (MANUAL) 86 % (42-75)
[2019-09-30] MEDS: ZOLPIDEM 5 MG TABLET PO PRN (20:44)
[2019-09-30] MEDS: BENZOCAINE/MENTH/CETYLPYRD LOZENGE MM PRN (20:44)
--- NOTE | 2019-09-30 21:00 | NUR ---
Patient's BP is 166/79 P-91, no order for BP meds at bedtime and no PRN BP meds, informed Raghu CUSTOMER EXPERIENCE ASSOCIATE w/ n.o for Hydralazine 25mg PO Q8. Also patient was complaining of sore throat, n.o for Lozenges Q2 PRN.
[2019-09-30] MEDS: hydrALAZINE HCL 25 MG TABLET PO SCH (21:55)
[2019-10-01] VITALS: BP 150/70
[2019-10-01] MEDS: BENZOCAINE/MENTH/CETYLPYRD LOZENGE MM PRN ×3 (02:57→18:32)
[2019-10-01 05:35] VITALS: BP 160/79
[2019-10-01] MEDS: hydrALAZINE HCL 25 MG TABLET PO SCH ×3 (05:43→21:43)
--- NOTE | 2019-10-01 06:30 | NUR ---
Patient slept intermittently. Patient removed his Tele monitor and refusing it, explained risks and benefits but still refused. Patient compliant w/ meds. All needs attended. Will endorse accordingly
[2019-10-01] MEDS: SEVELAMER CARBONATE 800 MG TABLET PO SCH ×3 (08:01→17:18)
[2019-10-01] MEDS: NIFEdipine XL 30 MG TABSR PO SCH ×2 (08:01→17:00)
[2019-10-01] MEDS: SENNOSIDES 1 TABLET PO SCH ×2 (08:01→17:17)
[2019-10-01] MEDS: CITRIC ACID/SODIUM CITRATE 30 ML SOLUTION PO SCH ×2 (08:01→17:18)
[2019-10-01] MEDS: ACETAMINOPHEN 325 MG TABLET PO PRN (08:37)
--- NOTE | 2019-10-01 10:22 | NUR ---
Patient noncompliant with nursing care, refusing campus monitor. Refuses IV access and fluids.
[2019-10-01 11:00] VITALS: BP 127/63
[2019-10-01 11:03] LABS: IRON, SERUM 12 ug/dL (50-175)
[2019-10-01 15:10] VITALS: BP 137/69
--- NOTE | 2019-10-01 17:27 | NUR ---
Patient refusing BP check, refusing procardia medication. Charge nurse made aware, following up with
--- NOTE | 2019-10-01 17:48 | NUR ---
Patient sitting up in chair, alert and oriented x2. Refusing threat monitoring analyst, Ursula Krishnamurthy LEATHER SPRAYER made aware. No IV access, patient refuses fluids. Noncompliant with nursing care. Seen by PT today, ambulatory with walker. Psych consult pending . Will endorse care to oncoming shift.
[2019-10-01 19:38] VITALS: BP 141/71
--- NOTE | 2019-10-01 20:00 | NUR ---
Patient received into care, sitting on side of the bed, with caregiver at bedside. Patient is alert/oriented x3 and has no complaints of pain or discomfort at this time. All safety and fall precaution measures are in place. Call light and personal items are within reach at all times. Will continue to monitor.
[2019-10-01] MEDS ORDERED: risperiDONE 0.5 MG TABLET PO SCH (23:00)
--- NOTE | 2019-10-01 23:00 | NUR ---
Patient seen by MD Juarez with a new order of 2mg haldol PO TID
[2019-10-01] MEDS: HALOPERIDOL 2 MG TABLET PO SCH (23:15)
[2019-10-01] MEDS ORDERED: HALOPERIDOL 0.5 MG TABLET ONE (23:36)
--- NOTE | 2019-10-01 23:45 | NUR ---
Patient refused prescribed PO haldol stating that "it kills people". Nurse explained risks/benefits three times, patient still refused. Addendum: 10/02/19 at 0529 by LEÓN ROLON RN Notified equipment operator warehouse of patient's refusal to take prescribed PO Haldol. supervisor belt and link assembly advised nurse to waste medication.
--- NOTE | 2019-10-02 05:00 | NUR ---
Patient refused AM VS with DIRECTOR OF VOCATIONAL GUIDANCE. Nurse explained to patient that he has prescribed blood pressure medication scheduled for 0600 and will need his blood pressure and heart rate in order to provide the medication safely. Patient said he would take the blood pressure medication but will not allow either the DIRECTOR OF VOCATIONAL GUIDANCE or nurse to take his VS. Nurse advised patient unable to provide blood pressure medication without getting accurate blood pressure/heart rate through VS. Patient declined again. Nurse will withhold apresoline scheduled for 0600 due to patient refusal to have VS measured.
[2019-10-02] MEDS: hydrALAZINE HCL 25 MG TABLET PO SCH ×3 (05:43→21:59)
--- NOTE | 2019-10-02 06:29 | NUR ---
Patient slept intermittently throughout night with no complaints of pain or discomfort. Patient is currently sitting up on side of bed and is alert/oriented x2-3. Patient had periods of yelling outbursts and conversations with either self or visual/cognitive hallucinations. Patient was compliant with HS VS and prescribed blood pressure medication but was noncompliant with new order for prescribed PO Haldol. Patient refused AM VS thus prescribed AM PO apresoline was withheld for patient safety. Patient is at times redirectable but has frequent angry outbursts. All nursing needs were met promptly. Call light and personal items are within reach at all times. All safety and fall precaution measures remain in place.
--- NOTE | 2019-10-02 08:00 | NUR ---
RECEIVED PT RESTING COMFORTABLY IN BED. NO ACUTE DISTRESS OR SOB NOTED.BED LOCKED AND IN LOW POSITION. PT REFUSES TELE MONITORING BOX AT THIS TIME. WILL CONTINUE TO MONITOR.
[2019-10-02] MEDS: SENNOSIDES 1 TABLET PO SCH ×2 (08:34→17:23)
[2019-10-02] MEDS: SEVELAMER CARBONATE 800 MG TABLET PO SCH ×3 (08:34→17:23)
[2019-10-02] MEDS: CITRIC ACID/SODIUM CITRATE 30 ML SOLUTION PO SCH ×2 (08:35→17:22)
[2019-10-02] MEDS: FERROUS SULFATE 325 MG TABEC PO SCH (08:35)
[2019-10-02] MEDS: HALOPERIDOL 2 MG TABLET PO SCH ×3 (08:36→17:00)
[2019-10-02] MEDS: NIFEdipine XL 30 MG TABSR PO SCH ×2 (08:36→17:24)
[2019-10-02 11:00] VITALS: BP 137/68
--- NOTE | 2019-10-02 12:15 | NUR ---
PT RESTING COMFORTABLY IN BED. DR MARIO AWARE OF PT REFUSING HALDOL IN AM. NO ACUTE DISTRESS OR SOB NOTED. PT COOPERATIVE AND PLEASANT. BED LOCKED AND IN LOW POSITION. PT REFUSES TO WEAR TELE MONITOR. DR MARIO AWARE. WILL CONTINUE TO MONITOR.
[2019-10-02 15:13] VITALS: BP 140/75
--- NOTE | 2019-10-02 15:30 | NUR ---
PT RETURNED FROM OR. PT STABLE. PT DENIES PAIN AT THIS TIME. NO ACUTE DISTRESS OR SOB NOTED. PRE OP ORDERS TO RESUME AFTER RECOVERY. PT ON LIQUID DIET. VITAL SIGNS STABLE. PT ALERT AND ORIENTED X 3. WILL CONTINUE TO MONITOR. Addendum: 10/02/19 at 1905 by ANTHONY JOHNSON RN DISREGARD. WRONG PATIENT.
--- NOTE | 2019-10-02 18:00 | NUR ---
PT RESTING COMFORTABLY IN BED. NO ACUTE DISTRESS NOTED. NO SOB NOTED. PT ALERT AND ORIENTED X3. PT DENIES PAIN AT THIS TIME. BED LOCKED AND IN LOW POSITION. PT ON PARTITION ASSEMBLY MACHINE OPERATOR WITH SINUS RHYTHM. WILL GIVE REPORT ACCORDINGLY. Addendum: 10/02/19 at 1905 by ANTHONY JOHNSON RN DISREGARD. WRONG PATIENT.
--- NOTE | 2019-10-02 18:05 | NUR ---
PT RESTING COMFORTABLY IN BED. NO ACUTE DISTRESS NOTED. NO SOB NOTED. PT ALERT AND ORIENTED X3. PT IS PLEASANT. BED LOCKED AND IN LOW POSITION. WILL GIVE REPORT ACCORDINGLY.
[2019-10-02 20:02] VITALS: BP 151/68
[2019-10-02] MEDS: BENZOCAINE/MENTH/CETYLPYRD LOZENGE MM PRN (22:00)
[2019-10-02] MEDS: ZOLPIDEM 5 MG TABLET PO PRN (22:00)
[2019-10-03 00:39] VITALS: BP 128/71
[2019-10-03] MEDS: BENZOCAINE/MENTH/CETYLPYRD LOZENGE MM PRN ×2 (03:24→05:53)
[2019-10-03 04:49] VITALS: BP 115/64
[2019-10-03] MEDS: hydrALAZINE HCL 25 MG TABLET PO SCH ×3 (05:53→21:29)
[2019-10-03 06:17] LABS: BASOPHILS % (AUTO) 0.6 % (0.0-2.0); EOSINOPHILS # (AUTO) 0.2 K/uL (0.0-0.7); EOSINOPHILS % (AUTO) 3.1 % (0.0-7.0); HEMATOCRIT 21.3 % (36.7-47.1); LYMPHOCYTES # (AUTO) 1.7 K/uL (20.0-40.0); LYMPHOCYTES % (AUTO) 23.9 % (20.5-51.5); MEAN CORPUSCULAR HEMOGLOBIN 26.5 uug (23.8-33.4); MEAN CORPUSCULAR HGB CONC 33 g/dL (32.5-36.3); MEAN CORPUSCULAR VOLUME 79.9 fL (73.0-96.2); MONOCYTES # (AUTO) 0.5 K/uL (2.0-10.0); MONOCYTES % (AUTO) 7.2 % (0.0-11.0); NEUTROPHILS # (AUTO) 4.7 K/uL (1.8-8.9); NEUTROPHILS % (AUTO) 65.2 % (38.5-71.5); PLATELET COUNT (AUTO) 426 K/uL (152-348); RED BLOOD CELL COUNT(AUTO) 2.66 MIL/uL (4.06-5.63); WHITE BLOOD COUNT (AUTO) 7.3 K/uL (3.6-10.2)
[2019-10-03 06:25] LABS: CARBON DIOXIDE 21 mmol/L (21-32); CHLORIDE 96 mmol/L (98-107); GLUCOSE 91 mg/dL (74-106); MAGNESIUM 2.9 mg/dL (1.8-2.4); PHOSPHOROUS 3.7 mg/dL (2.5-4.9); POTASSIUM 4.9 mmol/L (3.5-5.1)
--- NOTE | 2019-10-03 06:45 | NUR ---
patient is in his room fully dressed and voicing a plan to go home. Attempts to explain the need to be medically cleared by the doctor were met with hostility and agitation. Security was notified of the high AWOL risk.
[2019-10-03 07:12] LABS: HEMOGLOBIN 7.1 g/dL (12.5-16.3)
[2019-10-03 07:18] LABS: CREATININE 8.8 mg/dL (0.6-1.3); UREA NITROGEN, BLOOD 96 mg/dL (7-18)
--- NOTE | 2019-10-03 07:30 | NUR ---
Recieved pt sitting up on his bed. Very pleasant and cooperative. No apparent distress noted.
--- NOTE | 2019-10-03 07:34 | NUR ---
lab called with critical BUN 96 Creat 8.8, endorsed to the day shift RN
[2019-10-03] MEDS: SEVELAMER CARBONATE 800 MG TABLET PO SCH ×3 (08:00→16:36)
--- NOTE | 2019-10-03 09:00 | NUR ---
Pt took all his medications. Compliant.
[2019-10-03 09:03] LABS: LYMPHOCYTES % (MANUAL) 19 % (20-40); MONOCYTES % (MANUAL) 7 % (2-10); NEUTROPHILS % (MANUAL) 68 % (42-75)
[2019-10-03 09:04] LABS: EOSINOPHILS % (MANUAL) 6 % (0-8)
[2019-10-03] MEDS: SENNOSIDES 1 TABLET PO SCH ×2 (10:11→16:34)
[2019-10-03] MEDS: NIFEdipine XL 30 MG TABSR PO SCH ×2 (10:11→16:34)
[2019-10-03] MEDS: CITRIC ACID/SODIUM CITRATE 30 ML SOLUTION PO SCH ×2 (10:12→16:35)
[2019-10-03] MEDS: HALOPERIDOL 2 MG TABLET PO SCH ×3 (10:12→16:34)
[2019-10-03 11:26] VITALS: BP 123/57
[2019-10-03] MEDS: SOD FERRIC GLUC COMPLX/SUCROSE 125 MG in IV NORMAL SALINE 100 ML IV SCH (14:00)
--- NOTE | 2019-10-03 14:00 | NUR ---
Pt refused to have an IV line. Ferlicet IV not given and Dr Bragg is aware.
[2019-10-03 15:03] VITALS: BP 115/71
--- NOTE | 2019-10-03 17:00 | NUR ---
Endorsed to RN to follow up with the conservator in making a decision for dialysis.
--- NOTE | 2019-10-03 19:20 | NUR ---
RECEIVED PT AWAKE, ALERT AND ORIENTEDX3. PT SHOWS NO SIGNS OF ACUTE DISTRESS. PT REFUSED TO HAVE IV ACCESS. SAFETY AND COMFORT PROVIDED. WILL CONTINUE TO MONITOR.
[2019-10-03 19:33] VITALS: BP 120/53
--- NOTE | 2019-10-03 22:00 | NUR ---
SHIFT OFF REPORT TO [place]. PT IN NO CUTE DISTRESS. PT COMPLIANT WITH HIS MEDICATION. SAFETY AND COMFORT PROVIDED.
[2019-10-04 05:09] VITALS: BP 129/65
--- NOTE | 2019-10-04 06:00 | NUR ---
patient is blowing his nose, mucus is blood tinged. Insists on a microscopic analysis of the "blood clots from the right side of the brain".
[2019-10-04] MEDS: hydrALAZINE HCL 25 MG TABLET PO SCH ×2 (06:14→13:32)
--- NOTE | 2019-10-04 06:41 | NUR ---
patient refused blood draw, perseveres about sending his blood clots from the nose to the lab for examination. Took hydralazine. No distress noted.
[2019-10-04] MEDS: SEVELAMER CARBONATE 800 MG TABLET PO SCH ×3 (08:02→17:58)
[2019-10-04] MEDS: FERROUS SULFATE 325 MG TABEC PO SCH (08:03)
[2019-10-04] MEDS: SENNOSIDES 1 TABLET PO SCH ×2 (08:03→17:58)
[2019-10-04] MEDS: NIFEdipine XL 30 MG TABSR PO SCH ×2 (08:03→17:59)
[2019-10-04] MEDS: CITRIC ACID/SODIUM CITRATE 30 ML SOLUTION PO SCH ×2 (08:07→17:59)
[2019-10-04] MEDS: HALOPERIDOL 2 MG TABLET PO SCH ×3 (08:07→17:58)
[2019-10-04 12:23] VITALS: BP 126/66
[2019-10-04] MEDS ORDERED: HALO2TAB9 PO (12:46)
[2019-10-04] MEDS: SOD FERRIC GLUC COMPLX/SUCROSE 125 MG in IV NORMAL SALINE 100 ML IV SCH (13:35)
--- NOTE | 2019-10-04 13:36 | NUR ---
PATIENT IS FOR DISCHARGE HAS NO IV SITE AND REFUSED TO HAVE ONE PLACED SEEN TODAY BY DENILSON WITH [id number] HEAD TELLER STATED THAT PATIENT WILL BE PICKED UP BY BARBARA MORRIS BETWEEN 5 AND 6 PATIENT AWARE.
[2019-10-04 15:40] VITALS: BP 104/73
[2019-10-04 16:00] VITALS: BP 119/61
[2019-10-04 17:59] VITALS: BP 126/66
--- NOTE | 2019-10-04 18:15 | NUR ---
PATIENT DISCHARGED PICKED UP BY BARBARA IN SATISFACTORY CONDITION WITH DISCHARGE INSTRUCTIONS AND PRESCRIPTION AND BARBARA WAS INSTRUCTED THAT PATIENT SHOULD FOLLOW UP WITH HIS PRIMARY DOCTOR AND A BRAIDER SETTER FOR HEMODIALYSIS AND SHE EXPRESSED UNDERSTANDING.
== END 2019-10-04 18:15 | DRG 698 ==
LOC: ER 17:05 → TELE3 19:54 → MEDSURG3 10-02 19:00
PROVIDERS: ADMIT Nurse Practitioner Acute Care; ATTEND Nurse Practitioner Acute Care
DX: E11.21 Type 2 diabetes mellitus with diabetic nephropathy (principal); G93.41 Metabolic encephalopathy; I13.0 Hypertensive heart and chronic kidney disease with heart failure and stage 1 through stage 4 chronic kidney disease, or unspecified chronic kidney disease; E44.0 Moderate protein-calorie malnutrition; F20.0 Paranoid schizophrenia; N18.9 Chronic kidney disease, unspecified; D63.1 Anemia in chronic kidney disease; E11.22 Type 2 diabetes mellitus with diabetic chronic kidney disease; I50.9 Heart failure, unspecified; M89.8X9 Other specified disorders of bone, unspecified site; H54.61 Unqualified visual loss, right eye, normal vision left eye; E78.5 Hyperlipidemia, unspecified; E66.9 Obesity, unspecified; Z91.19 Patient's noncompliance with other medical treatment and regimen; Z79.899 Other long term (current) drug therapy; Z91.15 Patient's noncompliance with renal dialysis
CPT/HCPCS: 36415; 70030-TC; 80307; 83550; 83605; 83735; 84100; 84443; 85025; 85730; 87040; 87086; 93005; 93307; A4663; G0378; G0480; G0480-TC; J0885; J2916; J3490